=== PATIENT | female | born 2000 | race Caucasian/White ===

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

== ENCOUNTER 2021-04-23 13:21 | Emergency (ER) | payer OTHER ==
[~2021-04-23] VITALS: Ht 160 cm; Wt 49.0 kg
[~2021-04-23 13:21] MED LIST: ALBU8.5H8 INH
[2021-04-23 13:58] VITALS: BP_SYST 119
--- NOTE | 2021-04-23 14:00 | NUR ---
Patient triaged and placed in waiting room. VSS and patient appears in no acute distress at this time. Accompanied by friend , awaiting available bed, and MD notified of need for MSE.
--- NOTE | 2021-04-23 18:24 | NUR ---
Dr Carrasco evaluating patient in the triage room
[2021-04-23] MEDS ORDERED: NACL 0.9% 1,000 ML IV ONE (18:45)
[2021-04-23] MEDS ORDERED: MAG HYDROX/AL HYDROX/SIMETH 30 ML, LIDOCAINE VISCOUS 2% 15ML (PO) 15 ML, DICYCLOMINE HC... PO ONE ×3 (18:45)
[2021-04-23] MEDS ORDERED: ONDANSETRON HCL 4 MG/2 ML VIAL IVP ONE (18:45)
--- NOTE | 2021-04-23 19:24 | NUR ---
Patient to ER bed H1 to gown for evaluation. Side rails up.
[2021-04-23 19:28] LABS: BASOPHILS % (AUTO) 0.4 % (0.0-2.0); HEMATOCRIT 37.8 % (36-48); HEMOGLOBIN 12.8 g/dL (12.0-16.0); LYMPHOCYTES # (AUTO) 2.6 K/uL (1.0-5.5); LYMPHOCYTES % (AUTO) 25.1 % (20.5-51.5); MEAN CORPUSCULAR HEMOGLOBIN 31 pg (27-31); MEAN CORPUSCULAR HGB CONC 34 % (32-36); MEAN CORPUSCULAR VOLUME 91 fL (79.0-98.0); MONOCYTES # (AUTO) 0.9 K/uL (0.0-1.0); MONOCYTES % (AUTO) 8.5 % (1.7-9.3); NEUTROPHILS # (AUTO) 6.9 K/uL (1.8-7.7); PLATELET COUNT (AUTO) 264 K/uL (130-430); RED BLOOD CELL COUNT(AUTO) 4.16 MIL/uL (4.2-6.2); RED CELL DISTRIBUTION WIDTH 12.8 % (9.0-15.0); WHITE BLOOD COUNT (AUTO) 10.5 K/uL (4.5-11.0)
--- NOTE | 2021-04-23 19:30 | NUR ---
Pt BIB family to ED with a 2-day history of multiple episodes of intermittent vomiting associated with slight and intermittent abdominal pain. Patient admits to drinking the night before the onset of her symptoms. Patient reports that she not drink an extraordinary amount of alcohol. She has been trying to drink Pedialyte and Gatorade for relief, but she just ends up vomiting. Patient has never had the symptoms before
[2021-04-23 19:42] LABS: ANION GAP 10 (5-15); CALCIUM 9.6 mg/dL (8.4-11.0); CHLORIDE 101 mmol/L (98-107); CREATININE 0.93 mg/dL (0.55-1.30); GLUCOSE 104 mg/dL (70-99); POTASSIUM 3.5 mmol/L (3.5-5.1); SODIUM SERUM 137 mmol/L (136-145); UREA NITROGEN, BLOOD 14 mg/dL (8-21)
[2021-04-23] MEDS ORDERED: MAG-AL HYDROX/SIMETH 30 ML UDC ONE ×2 (19:42→19:44)
[2021-04-23] MEDS ORDERED: LIDOCAINE VISCOUS 2%, 15 ML UDC ONE (19:42)
[2021-04-23 19:47] LABS: GFR AFRICAN AMERICAN 100 mL/min (>90)
--- NOTE | 2021-04-23 19:47 | NUR ---
# 20 gauge angiocath placed to RT AC. Use of asceptic technique. Opsite placed over site. Blood return noted. Blood for lab drawn from site. Flushed with 10 cc of normal saline. No evidence of infiltration noted. Patient tolerated well.
[2021-04-23 19:49] LABS: ALANINE AMINOTRANSFERASE 31 U/L (12-78); ALBUMIN 4.1 g/dL (3.4-4.8); ASPARTATE AMINOTRANSFERASE 38 U/L (10-37); LIPASE 331 U/L (73-393); TOTAL BILIRUBIN 0.5 mg/dL (0.0-1.0)
[2021-04-23 19:52] LABS: ALCOHOL, BLOOD < 3 mg/dL (<10)
[2021-04-23 20:07] LABS: BILIRUBIN,URINE NEGATIVE (NEGATIVE); BLOOD, URINE NEGATIVE (NEGATIVE); GLUCOSE,URINE NEGATIVE (NEGATIVE); KETONES,URINE NEGATIVE (NEGATIVE); LEUKOCYTE ESTERASE ,URINE NEGATIVE (NEGATIVE); NITRITE, URINE NEGATIVE (NEGATIVE); PROTEIN URINE NEGATIVE (NEGATIVE); UROBILINOGEN,URINE 0.2 (0.2-1.0)
[2021-04-23 20:10] LABS: CLARITY/URINE SLIGHTLY HAZY (CLEAR); COLOR,URINE STRAW (YELLOW)
[2021-04-23] MEDS ORDERED: OMEP40CA20 PO (20:50)
[2021-04-23] MEDS ORDERED: DICY10CA13 PO (20:50)
[2021-04-23] MEDS ORDERED: ONDA-8 TL (20:50)
[2021-04-23 21:00] VITALS: BP_SYST 112
--- NOTE | 2021-04-23 21:04 | NUR ---
Patient given written and verbal discharge instructions and verbalizes understanding. ER MD discussed with patient the results and treatment provided. Patient in stable condition. ID arm band removed. IV catheter removed intact and dressing applied, no active bleeding. Rx of Dicyclomine, Omeprazole and Zofran given. Patient educated on pain management and to follow up with PMD. Pain Scale 0/10 Opportunity for questions provided and answered. Medication side effect fact sheet provided.
== END 2021-04-23 21:00 | disposition home or self-care (01) ==
LOC: SED 13:21
DX: K29.20 Alcoholic gastritis without bleeding (principal); E86.0 Dehydration; Z79.899 Other long term (current) drug therapy
CPT/HCPCS: 36415; 80053; 81003; 81025; 83690; 85025; 99283; G0482; J2001; J2405

== ENCOUNTER 2021-04-26 10:15 | Emergency (ER) | payer OTHER ==
[~2021-04-26] VITALS: Ht 157.5 cm; Wt 47.2 kg
[2021-04-26 10:15] VITALS: BP_SYST 119
[~2021-04-26 10:15] MED LIST changes: +DICY10CA13 PO; +OMEP40CA20 PO; +ONDA-8 TL
--- NOTE | 2021-04-26 10:20 | NUR ---
TRIAGED AND BROUGHT BACK TO BED #8, REPORT GIVEN TO BETZAIDA
--- NOTE | 2021-04-26 10:38 | NUR ---
ER at bedside examining patient.
[2021-04-26] MEDS ORDERED: DIPHENHYDRAMINE INJ 50 MG/ML VIAL IVP ONE (10:45)
[2021-04-26] MEDS ORDERED: NACL 0.9% 1,000 ML IV ONE (10:45)
[2021-04-26] MEDS ORDERED: METOCLOPRAMIDE HCL 10 MG/2 ML VIAL IVP ONE (10:45)
[2021-04-26] MEDS ORDERED: KETOROLAC TROMETHAMINE 30 MG VIAL IVP ONE (11:00)
--- NOTE | 2021-04-26 11:05 | NUR ---
Pt brought in by mother with c/o abd pain and vomitting since Friday. pt states she smoked weed and became sick after that. Cap refill <3, skin warm, abd soft and tender to palpation.
--- NOTE | 2021-04-26 11:10 | NUR ---
# 20 gauge angiocath placed to right arm. Use of asceptic technique. Opsite placed over site. Blood return noted. Blood for lab drawn from site. Flushed with 10 cc of normal saline. No evidence of infiltration noted. Patient tolerated well.
--- NOTE | 2021-04-26 11:11 | NUR ---
IV medications given per md order.
[2021-04-26 11:53] LABS: CALCIUM 9.5 mg/dL (8.4-11.0); CREATININE 0.77 mg/dL (0.55-1.30); POTASSIUM 3.4 mmol/L (3.5-5.1)
[2021-04-26 11:56] LABS: BASOPHILS % (AUTO) 0.6 % (0.0-2.0); EOSINOPHILS % (AUTO) 0.2 % (0.0-4.0); HEMATOCRIT 39.5 % (36-48); HEMOGLOBIN 13.7 g/dL (12.0-16.0); LYMPHOCYTES # (AUTO) 1.9 K/uL (1.0-5.5); LYMPHOCYTES % (AUTO) 29.7 % (20.5-51.5); MEAN CORPUSCULAR HEMOGLOBIN 31 pg (27-31); MEAN CORPUSCULAR HGB CONC 35 % (32-36); MEAN CORPUSCULAR VOLUME 89 fL (79.0-98.0); MONOCYTES # (AUTO) 0.4 K/uL (0.0-1.0); MONOCYTES % (AUTO) 6.6 % (1.7-9.3); NEUTROPHILS # (AUTO) 4.1 K/uL (1.8-7.7); NEUTROPHILS % (AUTO) 62.9 % (40.0-70.0); PLATELET COUNT (AUTO) 268 K/uL (130-430); RED BLOOD CELL COUNT(AUTO) 4.42 MIL/uL (4.2-6.2); RED CELL DISTRIBUTION WIDTH 12.2 % (9.0-15.0); WHITE BLOOD COUNT (AUTO) 6.5 K/uL (4.5-11.0)
[2021-04-26 12:04] LABS: TOTAL BILIRUBIN 0.8 mg/dL (0.0-1.0)
--- NOTE | 2021-04-26 12:46 | NUR ---
Pt resting in bed. No pain noted.
[2021-04-26] MEDS ORDERED: METO-290 PO (14:09)
--- NOTE | 2021-04-26 14:10 | NUR ---
Covid swab obtained and sent to lab for analysis.
[2021-04-26 14:20] VITALS: BP_SYST 119
--- NOTE | 2021-04-26 14:20 | NUR ---
Patient given written and verbal discharge instructions and verbalizes understanding. DR. WASHINGTON MORATAYA MD discussed with patient the results and treatment provided. Patient in stable condition. ID arm band removed. IV catheter removed intact and dressing applied, no active bleeding. Rx OF REGLAN GIVEN PER MD.Patient educated on pain management and to follow up with PMD. Pain Scale 0/10. Opportunity for questions provided and answered. Medication side effect fact sheet provided.
== END 2021-04-26 14:20 | disposition home or self-care (01) ==
LOC: SED 10:15
DX: R11.2 Nausea with vomiting, unspecified (principal); Z20.822 Contact with and (suspected) exposure to COVID-19; Z88.0 Allergy status to penicillin; Z79.899 Other long term (current) drug therapy
CPT/HCPCS: 36415; 80053; 83690; 84702; 85025; 87426; 96361; 96374; 96375; 99284; J1200; J1885; J2765; J7030

== ENCOUNTER 2022-02-20 05:39 | Emergency (ER) | payer OTHER ==
[~2022-02-20] VITALS: Ht 154.9 cm; Wt 51.7 kg
[~2022-02-20 05:39] MED LIST changes: +METO-290 PO
[2022-02-20 05:50] VITALS: BP_SYST 134
--- NOTE | 2022-02-20 05:56 | NUR ---
Patient to ER bed 6 to gown for evaluation. Side rails up. Report given to Eliza PEACOCK.
--- NOTE | 2022-02-20 06:00 | NUR ---
FIRST CONTACT WITH PT. UPDATED PT ON POC WITH FULL RETURNED VERBAL UNDERSTANDING. URINE CUP PROVIDED TO PT AT THIS TIME
[2022-02-20] MEDS ORDERED: ONDANSETRON 4 MG ODT TAB PO ONE (06:15)
[2022-02-20] MEDS ORDERED: KETOROLAC TROMETHAMINE 60 MG/2 ML VIAL IM ONE (06:15)
[2022-02-20 06:26] LABS: BASOPHILS % (AUTO) 0.5 % (0.0-2.0); HEMATOCRIT 39.1 % (36-48); HEMOGLOBIN 13.5 g/dL (12.0-16.0); LYMPHOCYTES # (AUTO) 0.3 K/uL (1.0-5.5); MEAN CORPUSCULAR HEMOGLOBIN 31 pg (27-31); MEAN CORPUSCULAR HGB CONC 34 % (32-36); MEAN CORPUSCULAR VOLUME 89 fL (79.0-98.0); MONOCYTES # (AUTO) 0.5 K/uL (0.0-1.0); MONOCYTES % (AUTO) 15.1 % (1.7-9.3); NEUTROPHILS # (AUTO) 2.6 K/uL (1.8-7.7); NEUTROPHILS % (AUTO) 75.4 % (40.0-70.0); PLATELET COUNT (AUTO) 135 K/uL (130-430); RED BLOOD CELL COUNT(AUTO) 4.41 MIL/uL (4.2-6.2); RED CELL DISTRIBUTION WIDTH 13.1 % (9.0-15.0); WHITE BLOOD COUNT (AUTO) 3.4 K/uL (4.5-11.0)
--- NOTE | 2022-02-20 06:30 | NUR ---
TEST DONE WITH NEGATIVE RESULTS.
[2022-02-20 06:38] LABS: CALCIUM 8.1 mg/dL (8.4-11.0); CREATININE 0.78 mg/dL (0.55-1.30); POTASSIUM 3.9 mmol/L (3.5-5.1)
--- NOTE | 2022-02-20 06:40 | NUR ---
PT TO CT VIA W/C
[2022-02-20 06:45] LABS: ALBUMIN 3.8 g/dL (3.4-4.8); C-REACTIVE PROTEIN QUANT 0.7 mg/dL (0-0.5); TOTAL BILIRUBIN 0.3 mg/dL (0.0-1.0)
--- NOTE | 2022-02-20 06:55 | NUR ---
PT BACK FROM CT. WARM BLANKET PROVIDED. MEDICATION GIVEN. AWAITING RESULTS.
--- NOTE | 2022-02-20 07:15 | NUR ---
REPORT AND CARE TO LYNDA PEACOCK WITH FULL RETURNED VERBAL UNDERSTANDING.
[2022-02-20 07:17] VITALS: BP_SYST 124
--- NOTE | 2022-02-20 07:17 | NUR ---
Assumed care of pt and pt is in bed resting with no s/s of distress. Pt is A&Ox4. Skin intact. Connected pt to nerve specialist and VSS. Pt states she is allergic to penicillin. Pt c/o of still having a headache 5/10 non-radiating accompanied with nausea. No known medical conditions. No IV line in place. Bed in lowest position.
--- NOTE | 2022-02-20 07:24 | NUR ---
ER at bedside examining patient.
[2022-02-20] MEDS ORDERED: IBUP-1969 PO (07:39)
[2022-02-20] MEDS ORDERED: TRAM50TA2 PO (07:39)
--- NOTE | 2022-02-20 08:09 | NUR ---
Patient given written and verbal discharge instructions and verbalizes understanding. ER MD discussed with patient the results and treatment provided. Patient in stable condition. ID arm band removed. Rx of IBUPROFEN, TRAMADOL given. Patient educated on pain management and to follow up with PMD. Pain Scale 0/10. Opportunity for questions provided and answered. Medication side effect fact sheet provided.
== END 2022-02-20 08:09 | disposition home or self-care (01) ==
LOC: SED 05:39
DX: R51.9 Headache, unspecified (principal); R11.0 Nausea; Z88.0 Allergy status to penicillin; Z79.899 Other long term (current) drug therapy
CPT/HCPCS: 36415; 70450; 76376; 80053; 81025; 85025; 86140; 96372; 99284; J1885; Q0162